=== PATIENT | male | born 1995 | race Caucasian/White ===

== ENCOUNTER 2016-05-02 19:20 | Emergency (ER) | payer OTHER ==
[~2016-05-02] VITALS: Ht 179.1 cm; Wt 104.0 kg
[~2016-05-02 19:20] MED LIST: ADDE30TA PO; IBUP-232 PO
[2016-05-02 19:22] VITALS: BP 154/81; PULSE 84; RESP 15; TEMP 98.8; O2SAT 98
[2016-05-02] MEDS ORDERED: CYCL1TAB29 PO (20:14)
[2016-05-02] MEDS ORDERED: DICL75TA PO (20:14)
[2016-05-02] MEDS ORDERED: CYCLOBENZAPRINE HCL 10 MG TAB PO ONE (20:15)
[2016-05-02] MEDS ORDERED: NAPROXEN 500 MG TAB PO ONE (20:15)
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
[2016-05-02] MEDS ORDERED: ADDE10 PO (20:28)
== END 2016-05-02 20:40 | disposition home or self-care (01) ==
LOC: NEPB 19:20
DX: M54.5 Low back pain (principal); Z72.0 Tobacco use; Z86.59 Personal history of other mental and behavioral disorders; V89.2XXA Person injured in unspecified motor-vehicle accident, traffic, initial encounter; Y92.410 Unspecified street and highway as the place of occurrence of the external cause
CPT/HCPCS: 99283

== ENCOUNTER 2016-05-06 22:22 | Emergency (ER) | payer OTHER ==
[~2016-05-06] VITALS: Ht 177.8 cm; Wt 104.0 kg
[~2016-05-06 22:22] MED LIST changes: +ADDE10 PO; -ADDE30TA PO; +CYCL1TAB29 PO; +DICL75TA PO; -IBUP-232 PO
[2016-05-06 22:24] VITALS: BP 151/69; PULSE 81; RESP 16; TEMP 98.2; O2SAT 98
--- NOTE | 2016-05-06 23:20 | PD ---
HPI Chief Complaint: Skin Problem Time Seen by Provider: 23:20 Travel History International Travel<30 days: No Contact w/Intl Traveler<30days: No Traveled to known affect area: No History of Present Illness HPI 21-year-old male with no significant medical history presents to emergency department for evaluation of a 1 cm papular lesion on his right side. Patient is concerned that he may have been bitten by a spider. He noticed this today. No fever or chills. No significant pain. He has no other symptoms to report. History Past Medical Histgory Medical History: Denies Significant Hx Social History Alcohol Use: Yes Tobacco Use: Yes Allergies-Medications (Allergen,Severity, Reaction): Coded Allergies: No Known Allergies (Verified , 05/06/16) Reported Meds & Prescriptions Reported Meds & Active Scripts Active Flexeril (Cyclobenzaprine HCl) 10 Mg Tab 10 Mg PO TID Diclofenac Sodium DR (Diclofenac Sodium) 75 Mg Tabdr 75 Mg PO BID Reported Adderall (Amphetamine-Dextroamphetamine) 10 Mg Tab 10 Mg PO DAILY Avoid late evening doses. Space doses at least 4 to 6 hours if more than once/day dosing. Review of Systems Except as stated in HPI: all other systems reviewed are Neg Physical Exam Narrative GENERAL: Well-nourished, well-developed ill patient in no acute distress SKIN: Warm and dry. 1 cm in diameter papular lesion on the right lateral trunk. No induration. No fluctuation. It is blanchable. There is no pustule or vesicle formation. HEAD: Normocephalic. EYES: No scleral icterus. No injection or drainage. NECK: Supple, trachea midline. No JVD or lymphadenopathy. CARDIOVASCULAR: Regular rate and rhythm without murmurs, gallops, or rubs. RESPIRATORY: Breath sounds equal bilaterally. No accessory muscle use. GASTROINTESTINAL: Abdomen soft, non-tender, nondistended. MUSCULOSKELETAL: No cyanosis, or edema. BACK: Nontender without obvious deformity. No CVA tenderness. Data Data Last Documented VS Vital Signs Date Time Temp Pulse Resp B/P Pulse Ox O2 Delivery O2 Flow Rate FiO2 05/06/16 22:24 98.2 81 16 151/69 98 MDM Medical Screen Exam Complete: Yes Emergency Medical Condition: No Differential Diagnosis papular lesion R side of abdomen Narrative Course 21-year-old male presents to emergency department for evaluation of a 1 cm lesion on the lateral aspect of his trunk. The etiology of this is unable to be determined at this point. I advised not scratching at or squeezing the lesion. There are no urgent or emergent needs medical intervention at this time. A medical screening exam was performed: At the time of evaluation the presenting medical condition was determined not to be of an emergent nature. The patient was given the option of receiving additional care, but declined. Patient was given options for additional community resources from which to obtain care. The Patient Has Been advised to seek medical attention for their presenting complaint. The patient has been advised to return to the ER at any time if an emergent condition develops. Primary Impression: Encounter for medical screening examination Condition: Stable Kerry Black May 06, 2016 23:20
== END 2016-05-06 23:30 | disposition left against medical advice (07) ==
LOC: NEPB 22:22
DX: L98.9 Disorder of the skin and subcutaneous tissue, unspecified (principal)
CPT/HCPCS: 99281

== ENCOUNTER 2017-01-13 13:20 | Emergency (ER) | payer OTHER ==
[~2017-01-13] VITALS: Ht 180.3 cm; Wt 100.0 kg
[2017-01-13 13:21] VITALS: BP 135/67; PULSE 71; RESP 18; TEMP 97.8; O2SAT 100
[2017-01-13] MEDS ORDERED: CIPR0.3S LEFT EAR (16:36)
[2017-01-13] MEDS ORDERED: PROP20TA3 PO (16:36)
--- NOTE | 2017-01-13 16:55 | PD ---
HPI Chief Complaint: Abdominal Pain Time Seen by Provider: 16:42 Travel History International Travel<30 days: No Contact w/Intl Traveler<30days: No Traveled to known affect area: No History of Present Illness HPI 21-year-old male complaining of abdominal pain since taking 2 grams azithromycin at 945 this morning. States that he was prescribed azithromycin by his primary care physician because of a suspected Chlamydia infection. States that 30 minutes later he developed sharp stomach pain located in his left upper quadrant that lasted 30 minutes then went away. States that the left side of face felt like it was swelling and his friend said that his hand started swelling. He currently denies these symptoms at this point. He says he is also being treated for a left ear infection. Patient states he has some nausea currently but denies vomiting or diarrhea. Denies fever, chills, chest pain, shortness of breath, wheezing, dysuria. No history of surgeries and denies medical issues. Denies IV drug use. PFSH Past Medical History ADD: Yes ADHD: Yes Anxiety: Yes Heart Rhythm Problems: Yes Cardiovascular Problems: Yes Diminished Hearing: No Psychiatric: Yes (ADD) Immunizations Current: Yes Tetanus Vaccination: > 5 Years Influenza Vaccination: No Past Surgical History Surgical History: No Previous Surgery Social History Alcohol Use: Yes Tobacco Use: Yes Substance Use: No Allergies-Medications (Allergen,Severity, Reaction): Coded Allergies: No Known Allergies (Verified , 01/13/17) Reported Meds & Prescriptions Reported Meds & Active Scripts Active Reported Ciprodex Otic Drops (Ciprofloxacin-Dexamethasone Otic Drops) 0.3-0.1% Susp 4 Drop LEFT EAR BID Propranolol (Propranolol HCl) 20 Mg Tab 20 Mg PO Q8HR Adderall (Amphetamine-Dextroamphetamine) 10 Mg Tab 10 Mg PO DAILY Avoid late evening doses. Space doses at least 4 to 6 hours if more than once/day dosing. Review of Systems Except as stated in HPI: all other systems reviewed are Neg Physical Exam Narrative GENERAL: Well-developed well-nourished in no apparent distress SKIN: Focused skin assessment warm/dry. No ecchymosis, no edema HEAD: Atraumatic. Normocephalic. EYES: Pupils equal and round. No scleral icterus. No injection or drainage. ENT: No nasal bleeding or discharge. Mucous membranes pink and moist. No edema NECK: Trachea midline. No JVD. No lymphadenopathy CARDIOVASCULAR: Regular rate and rhythm. No murmur appreciated. RESPIRATORY: No accessory muscle use. Clear to auscultation. Breath sounds equal bilaterally. GASTROINTESTINAL: Abdomen soft, nondistended. Hepatic and splenic margins not palpable. Mildly tender to right upper and left lower quadrant. Without rebound tenderness MUSCULOSKELETAL: No obvious deformities. No clubbing. No cyanosis. No edema. NEUROLOGICAL: Awake and alert. No obvious cranial nerve deficits. Motor grossly within normal limits. Normal speech. PSYCHIATRIC: Appropriate mood and affect; insight and judgment normal. Data Data Last Documented VS Vital Signs Date Time Temp Pulse Resp B/P (MAP) Pulse Ox O2 Delivery O2 Flow Rate FiO2 01/13/17 19:05 72 20 130/74 (92) 99 01/13/17 13:21 97.8 Room Air Orders Orders Ondansetron Odt (Zofran Odt) (01/13/17 17:00) Complete Blood Count With Diff (01/13/17 16:56) Comprehensive Metabolic Panel (01/13/17 16:56) Lipase (01/13/17 16:56) Gc And Chlamydia Pcr (01/13/17 16:56) Ceftriaxone Inj (Rocephin Inj) (01/13/17 19:00) Ed Discharge Order (01/13/17 18:53) Labs Laboratory Tests Test 01/13/17 17:00 White Blood Count 12.3 TH/MM3 Red Blood Count 5.45 MIL/MM3 Hemoglobin 16.0 GM/DL Hematocrit 46.5 % Mean Corpuscular Volume 85.3 FL Mean Corpuscular Hemoglobin 29.3 PG Mean Corpuscular Hemoglobin Concent 34.3 % Red Cell Distribution Width 12.8 % Platelet Count 294 TH/MM3 Mean Platelet Volume 7.1 FL Neutrophils (%) (Auto) 56.6 % Lymphocytes (%) (Auto) 35.4 % Monocytes (%) (Auto) 6.2 % Eosinophils (%) (Auto) 1.3 % Basophils (%) (Auto) 0.5 % Neutrophils # (Auto) 7.0 TH/MM3 Lymphocytes # (Auto) 4.4 TH/MM3 Monocytes # (Auto) 0.8 TH/MM3 Eosinophils # (Auto) 0.2 TH/MM3 Basophils # (Auto) 0.1 TH/MM3 CBC Comment DIFF FINAL Differential Comment Blood Urea Nitrogen 18 MG/DL Creatinine 0.86 MG/DL Random Glucose 82 MG/DL Total Protein 8.7 GM/DL Albumin 4.6 GM/DL Calcium Level 10.1 MG/DL Alkaline Phosphatase 69 U/L Aspartate Amino Transf (AST/SGOT) 24 U/L Alanine Aminotransferase (ALT/SGPT) 34 U/L Total Bilirubin 0.2 MG/DL Sodium Level 135 MEQ/L Potassium Level 4.4 MEQ/L Chloride Level 101 MEQ/L Carbon Dioxide Level 25.8 MEQ/L Anion Gap 8 MEQ/L Estimat Glomerular Filtration Rate 112 ML/MIN Lipase 140 U/L Chlamydia trachomatis DNA (PCR) NOT DETECTED Neisseria gonorrhoeae DNA (PCR) NOT DETECTED MDM Medical Decision Making Medical Screen Exam Complete: Yes Emergency Medical Condition: Yes Differential Diagnosis Adverse reaction to medication versus abdominal colic versus diarrhea Narrative Course 21-year-old male complaining of abdominal pain since 945 this morning after taking 2 g azithromycin. Was prescribed azithromycin for a suspected Chlamydia infection. He states he had some severe left upper quadrant abdominal pain described as sharp and lasted 30 minutes but is now gone away. Complains of some nausea but he denies fever, chills, vomiting or diarrhea. Also denies dysuria or hematuria, penile discharge or rashes. Physical exam findings revealed mild tenderness to palpation of the left upper and right lower quadrant without rebound tenderness or masses. No ecchymosis over any aspect of abdomen. No CVA tenderness. Labs revealed elevated WBCs at 12.5- patient being treated for a chlamydial infection status post 2 g azithromycin. Pending urine GC chlamydia- I offered rocephin for treatment of gonorrhea as well so he would not require a return to the emergency department if the gonorrhea culture was positive. Pt understood and agreed to treatment. Vital signs stable Patient advised to follow-up with his primary care physician within 2 days Diagnosis Primary Impression: Medication reaction Qualified Codes: T88.7XXA - Unspecified adverse effect of drug or medicament, initial encounter Additional Impression: Urethritis Referrals: Primary Care Physician Additional Instructions: Follow-up with the primary care physician in 2 days Disposition: 01 DISCHARGE HOME Condition: Stable Ilda Sparrow Jan 13, 2017 16:55
[2017-01-13] MEDS ORDERED: ONDANSETRON ODT 4 MG TAB PO ONE (17:00)
[2017-01-13 17:17] LABS: BASOPHIL # 0.1 TH/MM3 (0-0.2); BASOPHIL % 0.5 % (0.0-2.0); EOSINOPHIL # 0.2 TH/MM3 (0-0.4); EOSINOPHIL % 1.3 % (0.0-4.0); HEMATOCRIT 46.5 % (39.0-51.0); HEMO FLAGS DIFF FINAL; LYMPH % 35.4 % (9.0-44.0); LYMPHOCYTE # 4.4 TH/MM3 (1.0-4.8); MEAN CELL VOLUME 85.3 FL (80.0-100.0); MEAN CORPUSCULAR HEMOGLOBIN 29.3 PG (27.0-34.0); MEAN CORPUSCULAR HGB CONC 34.3 % (32.0-36.0); MONO % 6.2 % (0.0-8.0); NEUT % 56.6 % (16.0-70.0); PLATELET COUNT 294 TH/MM3 (150-450); RED BLOOD COUNT 5.45 MIL/MM3 (4.50-5.90); RED CELL DISTRIBUTION WIDTH 12.8 % (11.6-17.2); WHITE BLOOD COUNT 12.3 TH/MM3 (4.0-11.0)
[2017-01-13 17:39] LABS: ALKALINE PHOSPHATASE 69 U/L (45-117); ALT (GPT) 34 U/L (12-78); TOTAL BILIRUBIN ADULT 0.2 MG/DL (0.2-1.0)
[2017-01-13 17:48] LABS: ANION GAP 8 MEQ/L (5-15); AST (GOT) 24 U/L (15-37); BICARBONATE 25.8 MEQ/L (21.0-32.0); BLOOD UREA NITROGEN 18 MG/DL (7-18); CHLORIDE 101 MEQ/L (98-107); GLOMERULAR FILTRATION RATE 112 ML/MIN (>89); POTASSIUM 4.4 MEQ/L (3.5-5.1); SODIUM (NA) 135 MEQ/L (136-145)
[2017-01-13] MEDS ORDERED: cefTRIAXone 250 MG VIAL IM ONE (19:00)
[2017-01-13 19:05] VITALS: BP 130/74
[2017-01-13 20:09] LABS: CHLAMYDIA PCR NOT DETECTED (NOT DETECT); NEISSERIA PCR NOT DETECTED (NOT DETECT)
== END 2017-01-13 19:18 | disposition home or self-care (01) ==
LOC: NEPD 13:20
DX: T88.7XXA Unspecified adverse effect of drug or medicament, initial encounter (principal); N34.2 Other urethritis; Z72.0 Tobacco use
CPT/HCPCS: 80053; 83690; 85025; 87491; 87591; 99283

== ENCOUNTER 2017-06-26 23:32 | Emergency (ER) | payer OTHER ==
[~2017-06-26] VITALS: Ht 180.3 cm; Wt 102.0 kg
[~2017-06-26 23:32] MED LIST changes: +CIPR0.3S LEFT EAR; -CYCL1TAB29 PO; -DICL75TA PO; +PROP20TA3 PO
[2017-06-26 23:34] VITALS: BP 109/66; PULSE 86; RESP 16; TEMP 98.9; O2SAT 99
[2017-06-26] MEDS ORDERED: PROP60CA PO (23:49)
[2017-06-26] MEDS ORDERED: ADDE25CA PO (23:49)
[2017-06-26] MEDS ORDERED: MELO15TA20 PO (23:49)
[2017-06-26 23:54] VITALS: BP 114/55; PULSE 88; RESP 16; TEMP 99; O2SAT 100
--- NOTE | 2017-06-27 00:03 | PD ---
HPI Chief Complaint: Abdominal Pain Time Seen by Provider: 23:51 Travel History International Travel<30 days: No Contact w/Intl Traveler<30days: No Traveled to known affect area: No History of Present Illness HPI 22-year-old male complains of right lower quadrant abdominal pain and diarrhea. Patient states the symptoms started 2 weeks ago. Patient states that the abdominal pain is cramping pain localized to the right lower quadrant of the abdomen. Patient denies any pain radiation. Patient denies any chills. Patient denies any nausea vomiting. Patient denies any dysuria frequency. Patient denies any back pain. PFSH Past Medical History ADD: Yes ADHD: Yes Anxiety: Yes Heart Rhythm Problems: Yes Cardiovascular Problems: Yes (HTN) Diminished Hearing: No Hypertension: Yes Psychiatric: Yes (ADD) Immunizations Current: Yes Tetanus Vaccination: Unknown Influenza Vaccination: No Past Surgical History Surgical History: No Previous Surgery Social History Alcohol Use: Yes (rarely) Tobacco Use: Yes (1PPW) Substance Use: No Allergies-Medications (Allergen,Severity, Reaction): Coded Allergies: No Known Allergies (Verified Allergy, Unknown, 06/27/17) Reported Meds & Prescriptions Reported Meds & Active Scripts Active Reported Meloxicam 15 Mg Tab 15 Mg PO DAILY Adderall Xr 24 HR (Amphetamine-Dextroamphetamine ER 24 HR) 25 Mg Cap 25 Mg PO DAILY Once daily in the morning. Propranolol ER 24 HR (Propranolol HCl) 60 Mg Cap 60 Mg PO DAILY Review of Systems General / Constitutional: No: Fever Eyes: No: Visual changes HENT: No: Headaches Cardiovascular: No: Chest Pain or Discomfort Respiratory: No: Shortness of Breath Gastrointestinal: Positive: Diarrhea, Abdominal Pain Genitourinary: No: Dysuria Musculoskeletal: No: Pain Skin: No Rash Neurologic: No: Weakness Psychiatric: No: Depression Endocrine: No: Polydipsia Hematologic/Lymphatic: No: Easy Bruising Physical Exam Narrative GENERAL: Well-nourished, well-developed patient. SKIN: Focused skin assessment warm/dry. HEAD: Normocephalic. EYES: No scleral icterus. No injection or drainage. NECK: Supple, trachea midline. No JVD or lymphadenopathy. CARDIOVASCULAR: Regular rate and rhythm without murmurs, gallops, or rubs. RESPIRATORY: Breath sounds equal bilaterally. No accessory muscle use. GASTROINTESTINAL: Abdomen soft, nondistended. Patient has mild tenderness on palpation right lower quadrant of the abdomen. No rebound tenderness. No mass. MUSCULOSKELETAL: No cyanosis, or edema. BACK: Nontender without obvious deformity. No CVA tenderness. Data Data Last Documented VS Vital Signs Date Time Temp Pulse Resp B/P (MAP) Pulse Ox O2 Delivery O2 Flow Rate FiO2 06/26/17 23:54 99.0 88 16 114/55 (74) 100 Room Air Orders Orders Complete Blood Count With Diff (06/26/17 23:57) Comprehensive Metabolic Panel (06/26/17 23:57) Lipase (06/26/17 23:57) Urinalysis - C+S If Indicated (06/26/17 23:57) Ct Abd/Pel W Iv Contrast(Rout) (06/26/17 23:57) Iv Access Insert/Monitor (06/26/17 23:57) Iohexol 350 Inj (Omnipaque 350 Inj) (06/27/17 01:26) Labs Laboratory Tests Test 06/27/17 00:00 06/27/17 00:05 White Blood Count 8.1 TH/MM3 Red Blood Count 5.03 MIL/MM3 Hemoglobin 15.1 GM/DL Hematocrit 42.3 % Mean Corpuscular Volume 84.1 FL Mean Corpuscular Hemoglobin 30.1 PG Mean Corpuscular Hemoglobin Concent 35.8 % Red Cell Distribution Width 12.9 % Platelet Count 206 TH/MM3 Mean Platelet Volume 6.9 FL Neutrophils (%) (Auto) 76.6 % Lymphocytes (%) (Auto) 17.1 % Monocytes (%) (Auto) 5.2 % Eosinophils (%) (Auto) 0.8 % Basophils (%) (Auto) 0.3 % Neutrophils # (Auto) 6.2 TH/MM3 Lymphocytes # (Auto) 1.4 TH/MM3 Monocytes # (Auto) 0.4 TH/MM3 Eosinophils # (Auto) 0.1 TH/MM3 Basophils # (Auto) 0.0 TH/MM3 CBC Comment DIFF FINAL Differential Comment Blood Urea Nitrogen 20 MG/DL Creatinine 1.02 MG/DL Random Glucose 73 MG/DL Total Protein 7.6 GM/DL Albumin 4.2 GM/DL Calcium Level 9.1 MG/DL Alkaline Phosphatase 59 U/L Aspartate Amino Transf (AST/SGOT) 18 U/L Alanine Aminotransferase (ALT/SGPT) 20 U/L Total Bilirubin 0.4 MG/DL Sodium Level 140 MEQ/L Potassium Level 3.3 MEQ/L Chloride Level 107 MEQ/L Carbon Dioxide Level 27.3 MEQ/L Anion Gap 6 MEQ/L Estimat Glomerular Filtration Rate 91 ML/MIN Lipase 127 U/L Urine Color YELLOW Urine Turbidity CLEAR Urine pH 6.0 Urine Specific [place] 1.029 Urine Protein TRACE mg/dL Urine Glucose (UA) NEG mg/dL Urine Ketones NEG mg/dL Urine Occult Blood NEG Urine Nitrite NEG Urine Bilirubin NEG Urine Urobilinogen LESS THAN 2.0 MG/DL Urine Leukocyte Esterase NEG Urine RBC 1 /hpf Urine WBC 3 /hpf Urine Squamous Epithelial Cells <1 /hpf Urine Mucus FEW /lpf Microscopic Urinalysis Comment CULT NOT INDICATED MDM Medical Decision Making Medical Screen Exam Complete: Yes Emergency Medical Condition: Yes Interpretation(s) 1:56 AM. Last Impressions Abdomen/Pelvis CT 06/26/17 1462 Signed Impressions: Service Date/Time: Tuesday, June 27, 2017 01:16 - CONCLUSION: Normal examination. The appendix is normal. On some images there some indistinctness of the margin the pancreas may indicate pancreatitis but the patient has abdominal pain that is lower. Douglas Burr MD 1:56 AM. CBC within normal limits. WBC 8.1. 76 neutrophil. Potassium 3.3. BUN 20. Glucose 73. UA is negative. Differential Diagnosis Differential diagnosis including appendicitis, gastroenteritis, colitis, UTI, pyelonephritis, nephrolithiasis. Narrative Course 22-year-old male with right lower quadrant abdominal pain and diarrhea. KCl 20 mEq p.o. given. Diagnosis Primary Impression: Abdominal pain Qualified Codes: R10.31 - Right lower quadrant pain Additional Impression: Hypokalemia Patient Instructions: General Instructions Additional Instructions: Tylenol for pain. Follow-up with personal physician. Return if persistent problem or worse. Advised potassium rich diet. Med/Other Pt SpecificInfo: No Meds Exist/No RX given Disposition: 01 DISCHARGE HOME Condition: Stable Ish Shine MD Jun 27, 2017 00:03
[2017-06-27 00:18] LABS: AUTOMATED NEUTROPHIL # 6.2 TH/MM3 (1.8-7.7); BASOPHIL % 0.3 % (0.0-2.0); EOSINOPHIL # 0.1 TH/MM3 (0-0.4); EOSINOPHIL % 0.8 % (0.0-4.0); HEMATOCRIT 42.3 % (39.0-51.0); HEMOGLOBIN 15.1 GM/DL (13.0-17.0); LYMPH % 17.1 % (9.0-44.0); LYMPHOCYTE # 1.4 TH/MM3 (1.0-4.8); MEAN CELL VOLUME 84.1 FL (80.0-100.0); MEAN CORPUSCULAR HEMOGLOBIN 30.1 PG (27.0-34.0); MEAN CORPUSCULAR HGB CONC 35.8 % (32.0-36.0); MEAN PLATELET VOLUME 6.9 FL (7.0-11.0); MONO % 5.2 % (0.0-8.0); MONOCYTE # 0.4 TH/MM3 (0-0.9); NEUT % 76.6 % (16.0-70.0); PLATELET COUNT 206 TH/MM3 (150-450); RED BLOOD COUNT 5.03 MIL/MM3 (4.50-5.90); RED CELL DISTRIBUTION WIDTH 12.9 % (11.6-17.2); WHITE BLOOD COUNT 8.1 TH/MM3 (4.0-11.0)
[2017-06-27 00:22] LABS: BILIRUBIN, URINE NEG (NEG); BLOOD, URINE NEG (NEG); GLUCOSE,URINE NEG (NEG); KETONE, URINE NEG (NEG); MUCUS URINE FEW /lpf (OCC); NITRITE,URINE NEG (NEG); SQUAMOUS EPITHELIAL CELL URINE <1 /hpf (0-5); URINE COLOR YELLOW (YELLW/STRAW); URINE LEUKOCYTE ESTERASE NEG (NEG)
[2017-06-27 00:35] LABS: ALBUMIN 4.2 GM/DL (3.4-5.0); ALT (GPT) 20 U/L (12-78); AST (GOT) 18 U/L (15-37); BICARBONATE 27.3 MEQ/L (21.0-32.0); BLOOD UREA NITROGEN 20 MG/DL (7-18); CALCIUM 9.1 MG/DL (8.5-10.1); CHLORIDE 107 MEQ/L (98-107); CREATININE 1.02 MG/DL (0.60-1.30); GLOMERULAR FILTRATION RATE 91 ML/MIN (>89); GLUCOSE,RANDOM 73 MG/DL (74-106); SODIUM (NA) 140 MEQ/L (136-145)
[2017-06-27 00:37] LABS: ALKALINE PHOSPHATASE 59 U/L (45-117); TOTAL BILIRUBIN ADULT 0.4 MG/DL (0.2-1.0); TOTAL PROTEIN 7.6 GM/DL (6.4-8.2)
[2017-06-27] MEDS ORDERED: IOHEXOL 350 MG/ML 10 ML VIAL (for RAD DIAG) IVCONTRAST ONE (01:26)
--- NOTE | 2017-06-27 01:30 | RADRPT ---
EXAM DATE/TIME: 06/27/2017 01:16 [facility] COMPARISON: No previous studies available for comparison. INDICATIONS : Right lower quadrant pain. IV CONTRAST: 90 cc Omnipaque 350 (iohexol) IV ORAL CONTRAST: No oral contrast ingested. RADIATION DOSE: 9.96 CTDIvol (mGy) MEDICAL HISTORY : Hypertension. SURGICAL HISTORY : None. ENCOUNTER: Initial ACUITY: 2 weeks PAIN SCALE: 7/10 LOCATION: Right lower quadrant TECHNIQUE: Volumetric scanning of the abdomen and pelvis was performed. Using automated exposure control and ad justment of the mA and/or kV according to patient size, radiation dose was kept as low as reasonably achievable to obtain optimal diagnostic quality images. DICOM format image data is available electro nically for review and comparison. FINDINGS: LOWER LUNGS: The visualized lower lungs are clear. LIVER: Homogeneous density without lesion. There is no dilation of the biliary tree. No calcified gallston es. SPLEEN: Normal size without lesion. PANCREAS: Within normal limits. KIDNEYS: Normal in size and shape. There is no mass, stone or hydronephrosis. ADRENAL GLANDS: Within normal limits. VASCULAR: There is no aortic aneurysm. BOWEL/MESENTERY: The stomach, small bowel, and colon demonstrate no acute abnormality. There is no free intraperitone al air or fluid. ABDOMINAL WALL: Within normal limits. RETROPERITONEUM: There is no lymphadenopathy. BLADDER: No wall thickening or mass. REPRODUCTIVE: Within normal limits. INGUINAL: There is no lymphadenopathy or hernia. MUSCULOSKELETAL: Within normal limits for patient age. CONCLUSION: Normal examination. The appendix is normal. On some images there some indistinctness of the margin th e pancreas may indicate pancreatitis but the patient has abdominal pain that is lower. Douglas Burr MD on June 27, 2017 at 1:26 Board Certified Radiologist. This report was verified electronically.
[2017-06-27] MEDS ORDERED: POTASSIUM CHLORIDE 20 MEQ CONTROLLED RELEASE TAB PO ONE (02:00)
== END 2017-06-27 02:18 | disposition home or self-care (01) ==
LOC: NEPC 23:32
DX: R10.31 Right lower quadrant pain (principal); E87.6 Hypokalemia; R19.7 Diarrhea, unspecified; F17.200 Nicotine dependence, unspecified, uncomplicated; I10 Essential (primary) hypertension; F90.9 Attention-deficit hyperactivity disorder, unspecified type
CPT/HCPCS: 74177; 80053; 81001; 83690; 85025; 99284; Q9967